=== PATIENT | female | born 1980 | race African-American/Black ===

== ENCOUNTER 2016-12-15 07:31 | Emergency (ER) | payer MEDICAID, SELFPAY ==
[2016-12-15] MEDS ORDERED: Sodium Chloride 0.9% 1,000 ML BAG ONE (07:47)
[2016-12-15] MEDS ORDERED: Ondansetron HCl/PF 4 MG/2 ML Vial ONE (07:53)
[2016-12-15] MEDS ORDERED: Ketorolac Tromethamine 30 MG/ML VIAL ONE (07:53)
[2016-12-15 08:15] LABS: Blood, Urine Trace (Negative); Clarity Clear (Clear); Glucose, Urine (Dipstick) 500 mg/dL (Negative); Leukocyte Negative (Negative); Nitrite Negative (Negative); Protein, Urine (Dipstick) Trace mg/dL (Neg-Trace); Specific Gravity, Urine 1.025 (1.005-1.030); pH, Urine 5.5 (5.0-9.0)
[2016-12-15 08:19] LABS: Bilirubin Small (Negative); Icto Negative (Negative)
[2016-12-15 08:21] LABS: Bacteria/HPF 1+ HPF (None Seen); Pregnancy Test - Urine (BHCG) NEGATIVE (NEGATIVE); RBC/HPF 0-3 HPF (0-3)
[2016-12-15 08:22] LABS: Pregu Control Bar Appear? YES (CONTROL BAR); Specific Gravity 1.025 (1.002-1.036)
--- NOTE | 2016-12-15 08:40 | CT ---
NONCONTRAST CT OF THE ABDOMEN AND PELVIS: IMPRESSION: Left-sided flank pain. FINDINGS: The lung bases are clear. There is a small gallstone within the gallbladder. The liver, spleen, pancreas, and adrenal glands are unremarkable. No right-sided renal or ureteral calculus is evident. There is left pelvic kidney. Small phlebolit hs are seen within the gonadal veins just to the left adnexa. There are small phleboliths within the lower pelvis. Unopacified large and small bowel are unremarkable-appearing. The bladder is decompressed. There is scattered degenerative and osteoarthritic change. IMPRESSION: 1. Left pelvic kidney. 2. No renal or ureteral calculus. No hydronephrosis demonstrated. 3. Cholelithiasis. POS: [facility]
[2016-12-15 08:52] LABS: #Eosinphils 0.1 thou/uL (0.0-0.7); #Monocytes 0.6 thou/uL (0.11-0.59); #Neutrophils 5.6 thou/uL (1.40-6.50); %Basophils 0.6 % (0.0-1.0); %Eosinophils 1.6 % (0.0-10.0); %Lymphocytes 24.1 % (21.0-51.0); %Monocytes 7.6 % (0.0-10.0); %Neutrophils 66.2 % (42.0-75.0); Hemoglobin 11.7 g/dL (12.0-16.0); Mean Corpuscular Hemoglobin 29.5 pg (27.0-31.0); Mean Corpuscular Volume 89.5 fl (81.0-99.0); Mean Platelet Volume 8.5 fL (7.4-10.4); Platelet Count 282 thou/uL (130-400); RBC Distribution Width 12.7 % (11.5-14.5); Red Blood Cell (RBC) Count 3.96 mill/uL (4.20-5.40); White Blood Cell (WBC) Count 8.5 thou/uL (4.8-10.8)
[2016-12-15 09:09] LABS: ALT (SGPT) 9 U/L (8-55); AST (SGOT) 8 U/L (5-34); Albumin 3.6 g/dL (3.5-5.0); Alkaline Phosphatase 73 U/L (40-150); Anion Gap 15 mmol/L (10-20); Bilirubin, Total 0.3 mg/dL (0.2-1.2); Calc. Creatinine Clearance 0 mL/min (70-130); Calcium 8.6 mg/dL (7.8-10.44); Carbon Dioxide 23 mmol/L (22-29); Chloride 102 mmol/L (98-107); Estimated GFR-MDRD Greater than 90; Glucose 320 mg/dL (70-105); Potassium 3.8 mmol/L (3.5-5.1); Protein, Total 6.6 g/dL (6.0-8.3); Sodium 136 mmol/L (136-145)
[2016-12-15 09:16] LABS: BUN (Urea Nitrogen) 7 mg/dL (7.0-18.7)
== END 2016-12-15 09:45 | disposition home or self-care (01) ==
LOC: MADERS 07:31
DX: R10.32 Left lower quadrant pain (principal); E10.65 Type 1 diabetes mellitus with hyperglycemia; I10 Essential (primary) hypertension; F17.210 Nicotine dependence, cigarettes, uncomplicated; Z79.4 Long term (current) use of insulin; Z79.899 Other long term (current) drug therapy
CPT/HCPCS: 74176; 80053; 81003; 81015; 81025; 85025; 87086; 96361; 96374; 96375; J1885; J2405; J7050

== ENCOUNTER 2017-04-20 10:10 | Emergency (ER) | payer MEDICAID ==
[2017-04-20] MEDS ORDERED: Ketorolac Tromethamine 60 MG/2 ML VIAL ONE (10:25)
== END 2017-04-20 10:58 | disposition home or self-care (01) ==
LOC: MADERS 10:10
DX: S29.011A Strain of muscle and tendon of front wall of thorax, initial encounter (principal); E11.9 Type 2 diabetes mellitus without complications; I10 Essential (primary) hypertension; F17.210 Nicotine dependence, cigarettes, uncomplicated; Z79.4 Long term (current) use of insulin; Z79.899 Other long term (current) drug therapy; X58.XXXA Exposure to other specified factors, initial encounter
CPT/HCPCS: 93005; 96372; J1885

== ENCOUNTER 2017-07-17 21:52 | Emergency (ER) | payer MEDICAID ==
[2017-07-17 23:16] LABS: Bilirubin Negative (Negative); Blood, Urine Negative (Negative); Clarity Slightly Cloudy (Clear); Glucose, Urine (Dipstick) 500 mg/dL (Negative); Leukocyte Negative (Negative); Nitrite Negative (Negative); Protein, Urine (Dipstick) Negative (Neg-Trace)
[2017-07-17 23:17] LABS: Prothrombin Time 12.9 SEC (12.0-14.7)
[2017-07-17 23:23] LABS: #Basophils 0.1 thou/uL (0.0-0.2); #Eosinphils 0.2 thou/uL (0.0-0.7); #Lymphocytes 3.2 thou/uL (1.20-3.40); #Monocytes 0.6 thou/uL (0.11-0.59); #Neutrophils 6.3 thou/uL (1.40-6.50); %Basophils 0.7 % (0.0-1.0); %Eosinophils 2.3 % (0.0-10.0); %Monocytes 5.9 % (0.0-10.0); %Neutrophils 60.2 % (42.0-75.0); Hemoglobin 11.7 g/dL (12.0-16.0); Mean Corpuscular Volume 90.6 fl (81.0-99.0); Mean Platelet Volume 7.5 fL (7.4-10.4); Platelet Count 327 thou/uL (130-400); RBC Distribution Width 13.4 % (11.5-14.5); Red Blood Cell (RBC) Count 4.02 mill/uL (4.20-5.40); White Blood Cell (WBC) Count 10.4 thou/uL (4.8-10.8)
[2017-07-17 23:23] LABS: Specific Gravity, Urine 1.032 (1.002-1.036)
[2017-07-17 23:28] LABS: ALT (SGPT) 12 U/L (8-55); AST (SGOT) 11 U/L (5-34); Albumin 3.6 g/dL (3.5-5.0); Alkaline Phosphatase 83 U/L (40-150); Anion Gap 15 mmol/L (10-20); BUN (Urea Nitrogen) 7 mg/dL (7.0-18.7); Bilirubin, Total Less than 0.3 mg/dL (0.2-1.2); Calc. Creatinine Clearance 0 mL/min (70-130); Calcium 9.1 mg/dL (7.8-10.44); Carbon Dioxide 24 mmol/L (22-29); Chloride 108 mmol/L (98-107); Estimated GFR-MDRD Greater than 90; Globulin 3.5 g/dL (2.4-3.5); Glucose 278 mg/dL (70-105); Magnesium 1.9 mg/dL (1.6-2.6); Protein, Total 7.1 g/dL (6.0-8.3); Sodium 143 mmol/L (136-145)
--- NOTE | 2017-07-17 23:33 | RAD ---
PA AND LATERAL CHEST: Indication: Chest pain. IMPRESSION: No acute cardiopulmonary abnormality. The examination is not appreciably changed from comparison date d 12-24-15. POS: [facility]
[2017-07-17 23:35] LABS: CKMB 0.6 ng/mL (0-6.6); Troponin I Less than 0.010 ng/mL (< 0.028)
== END 2017-07-17 23:52 | disposition home or self-care (01) ==
LOC: MADERS 21:52
DX: R07.89 Other chest pain (principal); E11.9 Type 2 diabetes mellitus without complications; I10 Essential (primary) hypertension; F17.210 Nicotine dependence, cigarettes, uncomplicated; Z79.899 Other long term (current) drug therapy; Z79.4 Long term (current) use of insulin
CPT/HCPCS: 36415; 71020; 80053; 81003; 82553; 83735; 84443; 84484; 85025; 85610; 93005

== ENCOUNTER 2017-09-02 18:55 | Emergency (ER) | payer MEDICAID, SELFPAY ==
[~2017-09-02 18:55] MED LIST: Sodium Chloride 0.9% 100 ML BAG ONE
[2017-09-02 19:30] LABS: #Basophils 0.1 thou/uL (0.0-0.2); #Eosinphils 0.1 thou/uL (0.0-0.7); #Lymphocytes 2.6 thou/uL (1.20-3.40); #Monocytes 0.6 thou/uL (0.11-0.59); #Neutrophils 4.2 thou/uL (1.40-6.50); %Basophils 1.5 % (0.0-1.0); %Eosinophils 1.5 % (0.0-10.0); %Lymphocytes 33.6 % (21.0-51.0); %Monocytes 7.9 % (0.0-10.0); %Neutrophils 55.5 % (42.0-75.0); Hemoglobin 13.3 g/dL (12.0-16.0); Mean Corpuscular HGB CONC 31.2 g/dL (32.0-36.0); Mean Corpuscular Hemoglobin 28.7 pg (27.0-31.0); Mean Corpuscular Volume 91.9 fl (81.0-99.0); Mean Platelet Volume 7.8 fL (7.4-10.4); Platelet Count 318 thou/uL (130-400); RBC Distribution Width 13.4 % (11.5-14.5); Red Blood Cell (RBC) Count 4.64 mill/uL (4.20-5.40); White Blood Cell (WBC) Count 7.6 thou/uL (4.8-10.8)
[2017-09-02] MEDS ORDERED: Metoclopramide HCl 10 MG/2 ML VIAL ONE ×2 (19:32→20:19)
[2017-09-02] MEDS ORDERED: diphenhydrAMINE 50 MG/ML VIAL ONE (19:32)
--- NOTE | 2017-09-02 19:35 | CT ---
CT HEAD WITHOUT CONTRAST 09/02/17 Multiple axial tomograms obtained through the head without IV enhancement. HISTORY: Headache. Ventricles have normal size and position. No evidence of intracranial hemorrhage or mass lesion. No i nfarct. The sinuses and mastoids are well aerated. IMPRESSION: No acute abnormality. POS: [facility]
[2017-09-02 19:58] LABS: PTT 27.7 SEC (22.9-36.1); Prothrombin Time 13.6 SEC (12.0-14.7)
[2017-09-02 20:09] LABS: ALT (SGPT) 11 U/L (8-55); AST (SGOT) 10 U/L (5-34); Albumin 3.9 g/dL (3.5-5.0); Alkaline Phosphatase 77 U/L (40-150); Anion Gap 16 mmol/L (10-20); BUN (Urea Nitrogen) 8 mg/dL (7.0-18.7); Bilirubin, Total 0.3 mg/dL (0.2-1.2); Calc. Creatinine Clearance 0 mL/min (70-130); Calcium 9.1 mg/dL (7.8-10.44); Carbon Dioxide 22 mmol/L (22-29); Chloride 106 mmol/L (98-107); Estimated GFR-MDRD Greater than 90; Globulin 3.9 g/dL (2.4-3.5); Glucose 146 mg/dL (70-105); Potassium 3.9 mmol/L (3.5-5.1); Protein, Total 7.8 g/dL (6.0-8.3); Sodium 140 mmol/L (136-145)
[2017-09-02 20:10] LABS: CKMB 0.2 ng/mL (0-6.6); Troponin I Less than 0.010 ng/mL (< 0.028)
== END 2017-09-02 22:42 | disposition home or self-care (01) ==
LOC: MADERS 18:55
DX: R51 Headache (principal); I10 Essential (primary) hypertension; E11.9 Type 2 diabetes mellitus without complications; F17.210 Nicotine dependence, cigarettes, uncomplicated
CPT/HCPCS: 36415; 70450; 80053; 82553; 84484; 85025; 85610; 85730; 93005; 96365; 96375; 96376; J1200; J2765; J7050

== ENCOUNTER 2017-10-18 14:28 | Outpatient (CLI) | payer OTHER ==
[2017-10-18 15:06] LABS: #Eosinphils 0.2 thou/uL (0.0-0.7); #Monocytes 0.5 thou/uL (0.11-0.59); %Basophils 0.5 % (0.0-1.0); %Eosinophils 1.7 % (0.0-10.0); %Lymphocytes 30.6 % (21.0-51.0); %Monocytes 5.1 % (0.0-10.0); %Neutrophils 62.2 % (42.0-75.0); Hemoglobin 12.6 g/dL (12.0-16.0); Mean Corpuscular HGB CONC 31.6 g/dL (32.0-36.0); Mean Corpuscular Volume 91.8 fl (81.0-99.0); Mean Platelet Volume 7.6 fL (7.4-10.4); Platelet Count 345 thou/uL (130-400); RBC Distribution Width 12.8 % (11.5-14.5); Red Blood Cell (RBC) Count 4.33 mill/uL (4.20-5.40); White Blood Cell (WBC) Count 9.7 thou/uL (4.8-10.8)
[2017-10-18 15:27] LABS: ALT (SGPT) 16 U/L (8-55); AST (SGOT) 11 U/L (5-34); Albumin 3.9 g/dL (3.5-5.0); Alkaline Phosphatase 67 U/L (40-150); Anion Gap 13 mmol/L (10-20); BUN (Urea Nitrogen) 9 mg/dL (7.0-18.7); Bilirubin, Total 0.2 mg/dL (0.2-1.2); Calc. Creatinine Clearance 0 mL/min (70-130); Calcium 9.2 mg/dL (7.8-10.44); Carbon Dioxide 25 mmol/L (22-29); Chloride 101 mmol/L (98-107); Estimated GFR-MDRD 87; Globulin 3.4 g/dL (2.4-3.5); Glucose 323 mg/dL (70-105); Potassium 4.4 mmol/L (3.5-5.1); Protein, Total 7.3 g/dL (6.0-8.3); Sodium 135 mmol/L (136-145)
[2017-10-18 15:42] LABS: Thyroid Stimulating Hormone 0.4503 uIU/mL (0.35-4.94)
[2017-10-18 22:03] LABS: Free T4 (Free Thyroxine) 1.02 ng/dL (0.70-1.48)
== END 2017-10-18 14:29 | disposition home or self-care (01) ==
LOC: MADLABBHPM 14:28 → EDSTATUS 14:31
PROVIDERS: ATTEND Family Medicine
DX: R07.9 Chest pain, unspecified (principal); R06.02 Shortness of breath; R53.83 Other fatigue
CPT/HCPCS: 36415; 80053; 82607; 84439; 84443; 85025; 93005; 93010

== ENCOUNTER 2018-03-10 14:42 | Outpatient (CLI) | payer OTHER ==
--- NOTE | 2018-03-10 16:04 | RAD ---
CHEST TWO VIEW: 03/10/18 HISTORY: Recurrent cough. COMPARISON: Chest radiograph 07/17/17. The lungs are clear. No pneumothorax or effusion. The cardiac silhouette and mediastinal contours are within normal limits. IMPRESSION: No acute intrathoracic abnormality. POS: [facility]
== END 2018-03-10 14:43 | disposition home or self-care (01) ==
LOC: MADRAD 14:42
PROVIDERS: ATTEND Family Medicine
DX: R05 Cough (principal)
CPT/HCPCS: 71046

== ENCOUNTER 2018-04-03 20:07 | Emergency (ER) | payer OTHER ==
[~2018-04-03 20:07] MED LIST changes: +Iopamidol 370 76% 100 ML VIAL ONE; +Sodium Chloride 0.9% 1,000 ML BAG ONE; -Sodium Chloride 0.9% 100 ML BAG ONE
[2018-04-03] MEDS ORDERED: Morphine 10 MG/ML VIAL ONE (20:34)
[2018-04-03] MEDS ORDERED: Ondansetron HCl/PF 4 MG/2 ML Vial ONE (20:35)
[2018-04-03] MEDS ORDERED: diphenhydrAMINE 50 MG/ML VIAL ONE (20:35)
[2018-04-03 20:46] LABS: #Eosinphils 0.1 thou/uL (0.0-0.7); #Lymphocytes 3.6 thou/uL (1.20-3.40); #Monocytes 0.6 thou/uL (0.11-0.59); #Neutrophils 6.6 thou/uL (1.40-6.50); %Basophils 0.4 % (0.0-1.0); %Eosinophils 1.1 % (0.0-10.0); %Monocytes 5.1 % (0.0-10.0); %Neutrophils 60.3 % (42.0-75.0); Hemoglobin 12.6 g/dL (12.0-16.0); Mean Corpuscular HGB CONC 31.8 g/dL (32.0-36.0); Mean Corpuscular Hemoglobin 27.6 pg (27.0-31.0); Mean Corpuscular Volume 86.9 fL (78.0-98.0); Mean Platelet Volume 8.7 fL (7.4-10.4); Platelet Count 251 thou/uL (130-400); RBC Distribution Width 12.8 % (11.5-14.5); Red Blood Cell (RBC) Count 4.58 mill/uL (4.20-5.40); White Blood Cell (WBC) Count 10.9 thou/uL (4.8-10.8)
[2018-04-03 20:48] LABS: PTT 27.9 SEC (22.9-36.1); Prothrombin Time 12.9 SEC (12.0-14.7)
[2018-04-03 20:58] LABS: ALT (SGPT) 13 U/L (8-55); AST (SGOT) 11 U/L (5-34); Albumin 3.9 g/dL (3.5-5.0); Alkaline Phosphatase 90 U/L (40-150); Anion Gap 16 mmol/L (10-20); BUN (Urea Nitrogen) 10 mg/dL (7.0-18.7); Bilirubin, Total 0.3 mg/dL (0.2-1.2); Calc. Creatinine Clearance 0 mL/min (70-130); Calcium 9.7 mg/dL (7.8-10.44); Carbon Dioxide 25 mmol/L (22-29); Chloride 100 mmol/L (98-107); Estimated GFR-MDRD 69; Globulin 3.7 g/dL (2.4-3.5); Glucose 368 mg/dL (70-105); Potassium 4.2 mmol/L (3.5-5.1); Protein, Total 7.6 g/dL (6.0-8.3); Sodium 137 mmol/L (136-145)
[2018-04-03] MEDS ORDERED: Morphine 4 MG/ML VIAL ONE (21:41)
--- NOTE | 2018-04-03 21:51 | RAD ---
CHEST TWO VIEWS: HISTORY: Pain radiating up the neck and posterior right aspect of the head. COMPARISON: 03/10/2018 FINDINGS: A right-sided Mediport catheter with the distal tip presumed to be in the superior vena cava. There is no pneumothorax. The lungs and pleural spaces are clear. Normal cardiac silhouette. IMPRESSION: Right-sided Mediport catheter, as above. No pneumothorax. POS: [facility]
--- NOTE | 2018-04-03 21:57 | RAD ---
SOFT TISSUE NECK RADIOGRAPH: HISTORY: Breast cancer. Puncture luther above the right clavicle, causing lateral neck pain. Subclavian port p laced today for chemo. FINDINGS: Two views of the soft tissue neck do not demonstrate any radiopaque foreign body. There appears to b e surgical clips in the left neck. The epiglottis has a normal caliber. There is no prevertebral so ft tissue swelling. Unremarkable catheter in the lower right neck. IMPRESSION: 1. Patent aerodigestive tract. 2. Surgical clip in the left neck. 3. Normal caliber epiglottis. 4. Limited evaluation of the Mediport catheter, which appears to be grossly unremarkable along its p osition in the lower right neck. POS: [facility]
--- NOTE | 2018-04-03 22:39 | CT ---
CT NECK SOFT TISSUE: HISTORY: Pain. Recent port catheter placement. COMPARISON: Chest radiograph from the same date. There is small volume glass on the right sternocleidomastoid mu scle. There is expected gas from recent port placement. A right IJ port catheter has been placed, w ith the tip in good position, at the mid to inferior SVC. No significant hematoma. No pneumothorax. The lung apices are clear. There is mild degenerative disk space disease at C4-C5. The thyroid is unremarkable. Evaluation of the known breast mass is limited. No suspicious osteolytic or osteoblastic lesion of the cervical spine. IMPRESSION: Expected postoperative change from recent port placement. No complications. POS: [facility]
[2018-04-03] MEDS ORDERED: Ibuprofen 800 MG TAB ONE (22:42)
[2018-04-03] MEDS ORDERED: HYDROcodone/Acetaminophen 10/325 mg Tablet ONE (22:42)
[2018-04-03] MEDS ORDERED: Cyclobenzaprine 10 MG TAB ONE (22:42)
== END 2018-04-03 22:50 | disposition home or self-care (01) ==
LOC: MADERS 20:07
DX: G89.18 Other acute postprocedural pain (principal); E11.9 Type 2 diabetes mellitus without complications; I10 Essential (primary) hypertension; F17.210 Nicotine dependence, cigarettes, uncomplicated; Z79.4 Long term (current) use of insulin; Z79.899 Other long term (current) drug therapy
CPT/HCPCS: 70360; 70491; 71046; 80053; 85025; 85610; 85730; 96361; 96374; 96375; 96376; J1200; J2270; J2405; J7050

== ENCOUNTER 2018-04-08 14:04 | Emergency (ER) | payer OTHER ==
[~2018-04-08 14:04] MED LIST changes: -Iopamidol 370 76% 100 ML VIAL ONE; +Iopamidol 370 76% 125 ML VIAL FS ONE; -Sodium Chloride 0.9% 1,000 ML BAG ONE; +Sodium Chloride 0.9% 100 ML BAG ONE
--- NOTE | 2018-04-08 15:29 | RAD ---
TWO VIEW CHEST: INDICATION: Dyspnea. COMPARISON: 04/03/18. FINDINGS: Lungs appear clear. No infiltrate identified. Heart and mediastinum unremarkable. A MediPort olga ter is unchanged in position. IMPRESSION: No evidence of acute process. POS: [facility]
[2018-04-08 15:33] LABS: ALT (SGPT) 12 U/L (8-55); AST (SGOT) 11 U/L (5-34); Albumin 4.1 g/dL (3.5-5.0); Alkaline Phosphatase 82 U/L (40-150); Anion Gap 17 mmol/L (10-20); BUN (Urea Nitrogen) 8 mg/dL (7.0-18.7); Bilirubin, Total 0.5 mg/dL (0.2-1.2); Calc. Creatinine Clearance 0 mL/min (70-130); Calcium 9.8 mg/dL (7.8-10.44); Carbon Dioxide 22 mmol/L (22-29); Chloride 102 mmol/L (98-107); Estimated GFR-MDRD Greater than 90; Globulin 3.8 g/dL (2.4-3.5); Glucose 193 mg/dL (70-105); Potassium 3.8 mmol/L (3.5-5.1); Protein, Total 7.9 g/dL (6.0-8.3); Sodium 137 mmol/L (136-145)
[2018-04-08 15:36] LABS: CKMB 0.2 ng/mL (0-6.6); Troponin I Less than 0.010 ng/mL (< 0.028)
[2018-04-08 15:42] LABS: #Basophils 0.1 thou/uL (0.0-0.2); #Eosinphils 0.2 thou/uL (0.0-0.7); #Monocytes 0.5 thou/uL (0.11-0.59); #Neutrophils 7.5 thou/uL (1.40-6.50); %Basophils 0.6 % (0.0-1.0); %Eosinophils 1.4 % (0.0-10.0); %Lymphocytes 26.7 % (21.0-51.0); %Monocytes 4.4 % (0.0-10.0); %Neutrophils 66.9 % (42.0-75.0); Lymphocytes 27 % (21-51); MDiff Complete? YES; Mean Corpuscular HGB CONC 32.3 g/dL (32.0-36.0); Mean Corpuscular Hemoglobin 27.6 pg (27.0-31.0); Mean Corpuscular Volume 85.5 fL (78.0-98.0); Mean Platelet Volume 8.5 fL (7.4-10.4); Monocytes 6 % (0-10); Neutrophil 67 % (42-75); PLT Morphology Comment Appears Adequate; Platelet Count 274 thou/uL (130-400); RBC Distribution Width 12.8 % (11.5-14.5); White Blood Cell (WBC) Count 11.3 thou/uL (4.8-10.8)
--- NOTE | 2018-04-08 16:46 | CT ---
CT ANGIOGRAM THORAX WITH IV CONTRAST AND 3D RECONSTRUCTIONS: 04/08/18 HISTORY: Dyspnea. COMPARISON: CT thorax on 01/06/16. FINDINGS: No filling defects are seen in the pulmonary arteries to suggest a pulmonary embolus. The thoracic aorta is normal in caliber without evidence of an aortic dissection. Calcified granulomas again seen at the posterior left lung base. Scattered areas of atelectasis are p resent. There is no noncalcified pulmonary nodule, mass, or pleural effusion seen. A left internal jugular vein Mediport catheter is now noted in place with the tip terminating at the distal SVC. Calcified subcarinal lymph node is seen. Stable but mildly prominent left axillary lymph nodes are identified. The ill-defined low density area seen posterior and inferior to the pancreas and adjacent to the left adrenal gland is again seen and unchanged from the prior exam. This area was also seen on a prior st udy in 2012 but has improved from the prior study in 2012. There is a tiny less than 4 mm incompletely imaged hypodense nodule in the left lobe of the thyroid g land which is difficult to further characterize due to very small size. There is incomplete imaging o f a nodular density within the left breast. IMPRESSION: 1. No CT evidence of a pulmonary embolus. 2. Incomplete imaging of a nodular density in the left breast. However, mammograms obtained at [facility] on 03/01/18 demonstrated a breast mass which was subsequently biopsied. 3. No noncalcified pulmonary nodules are seen. There are mildly prominent left axillary lymph no hema, which were also present on prior exam. 4. Right internal jugular vein Mediport catheter now in place. 5. Stable low density structure posterior and inferior to the pancreas and adjacent left adrenal gland seen on prior studies in 2015 and 2012 of uncertain etiology. POS: [facility]
== END 2018-04-08 17:20 | disposition home or self-care (01) ==
LOC: MADERS 14:04
DX: G89.18 Other acute postprocedural pain (principal); R06.02 Shortness of breath; R42 Dizziness and giddiness; I10 Essential (primary) hypertension; E11.9 Type 2 diabetes mellitus without complications; F17.210 Nicotine dependence, cigarettes, uncomplicated; Z79.891 Long term (current) use of opiate analgesic; Z79.4 Long term (current) use of insulin; Z79.899 Other long term (current) drug therapy
CPT/HCPCS: 71046; 71275; 80053; 82553; 84484; 85025; 85379; 93005; J7050

== ENCOUNTER 2018-04-18 17:41 | Emergency (ER) | payer SELFPAY ==
[~2018-04-18 17:41] MED LIST changes: -Iopamidol 370 76% 125 ML VIAL FS ONE; +Sodium Chloride 0.9% 1,000 ML BAG ONE; -Sodium Chloride 0.9% 100 ML BAG ONE
[2018-04-18] MEDS ORDERED: Pantoprazole 40 MG VIAL ONE (18:13)
[2018-04-18] MEDS ORDERED: Lorazepam 2 MG/ML VIAL ONE (18:13)
[2018-04-18] MEDS ORDERED: Promethazine HCl 25 MG/ML VIAL ONE (18:13)
[2018-04-18 18:32] LABS: ALT (SGPT) 12 U/L (8-55); AST (SGOT) 9 U/L (5-34); Albumin 3.9 g/dL (3.5-5.0); Alkaline Phosphatase 126 U/L (40-150); Anion Gap 16 mmol/L (10-20); BUN (Urea Nitrogen) 7 mg/dL (7.0-18.7); Bilirubin, Total 0.7 mg/dL (0.2-1.2); Calc. Creatinine Clearance 0 mL/min (70-130); Calcium 8.9 mg/dL (7.8-10.44); Carbon Dioxide 26 mmol/L (22-29); Chloride 101 mmol/L (98-107); Estimated GFR-MDRD Greater than 90; Globulin 3.5 g/dL (2.4-3.5); Glucose 288 mg/dL (70-105); Lipase 4 U/L (8-78); Potassium 3.6 mmol/L (3.5-5.1); Protein, Total 7.4 g/dL (6.0-8.3); Sodium 139 mmol/L (136-145)
[2018-04-18 18:35] LABS: Mean Corpuscular HGB CONC 33.1 g/dL (32.0-36.0); Mean Corpuscular Hemoglobin 28.6 pg (27.0-31.0); Mean Corpuscular Volume 86.4 fL (78.0-98.0); Mean Platelet Volume 8.5 fL (7.4-10.4); Platelet Count 227 thou/uL (130-400); RBC Distribution Width 12.5 % (11.5-14.5); White Blood Cell (WBC) Count 3.4 thou/uL (4.8-10.8)
[2018-04-18 18:36] LABS: Band 1 % (5-11); Lymphocytes 22 % (21-51); MDiff Complete? YES; Metamyelocyte 1 % (0-0); Monocytes 3 % (0-10); Neutrophil 51 % (42-75); PLT Morphology Comment Appears Adequate; RBC Morphology Normal; Reactive Lymphocytes 22 % (0-10)
[2018-04-18] MEDS ORDERED: Lorazepam 1 MG TAB ONE (21:20)
[2018-04-18] MEDS ORDERED: Promethazine 25 MG TAB ONE (21:20)
== END 2018-04-18 20:55 | disposition home or self-care (01) ==
LOC: MADERS 17:41
DX: R11.2 Nausea with vomiting, unspecified (principal); R10.9 Unspecified abdominal pain; E11.9 Type 2 diabetes mellitus without complications; I10 Essential (primary) hypertension; F17.210 Nicotine dependence, cigarettes, uncomplicated; Z79.899 Other long term (current) drug therapy; Z79.4 Long term (current) use of insulin; Z79.891 Long term (current) use of opiate analgesic
CPT/HCPCS: 80053; 83605; 83690; 85025; 96361; 96374; 96375; C9113; J2060; J2550; J7050

== ENCOUNTER 2018-04-30 09:24 | Emergency (ER) | payer OTHER ==
[2018-04-30] MEDS ORDERED: Pantoprazole 40 MG VIAL ONE (09:32)
[2018-04-30] MEDS ORDERED: Dexamethasone 10 MG/ML VIAL ONE (09:32)
[2018-04-30] MEDS ORDERED: Promethazine HCl 25 MG/ML VIAL ONE (09:32)
[2018-04-30] MEDS ORDERED: Lorazepam 2 MG/ML VIAL ONE (09:32)
--- NOTE | 2018-04-30 10:27 | RAD ---
1 VIEW CHEST: Date: 04/30/18 COMPARISON: 04/03/18. HISTORY: Pain. FINDINGS: Stable right-sided MediPort catheter. Normal cardiac silhouette. Lungs and pleural spaces are clear. No pneumothorax or osseous abnormalities. IMPRESSION: No acute cardiopulmonary process. POS: [facility]
[2018-04-30 10:35] LABS: ALT (SGPT) 15 U/L (8-55); AST (SGOT) 9 U/L (5-34); Albumin 3.6 g/dL (3.5-5.0); Alkaline Phosphatase 127 U/L (40-150); Anion Gap 17 mmol/L (10-20); BUN (Urea Nitrogen) 8 mg/dL (7.0-18.7); Bilirubin, Total 0.5 mg/dL (0.2-1.2); Calc. Creatinine Clearance 0 mL/min (70-130); Calcium 8.5 mg/dL (7.8-10.44); Carbon Dioxide 24 mmol/L (22-29); Chloride 102 mmol/L (98-107); Estimated GFR-MDRD Greater than 90; Globulin 2.9 g/dL (2.4-3.5); Glucose 355 mg/dL (70-105); Lipase 4 U/L (8-78); Magnesium 1.5 mg/dL (1.6-2.6); Protein, Total 6.5 g/dL (6.0-8.3); Sodium 139 mmol/L (136-145)
[2018-04-30 10:37] LABS: CKMB 0.2 ng/mL (0-6.6); Hemoglobin 11.7 g/dL (12.0-16.0); Mean Corpuscular HGB CONC 32.6 g/dL (32.0-36.0); Mean Corpuscular Hemoglobin 29.2 pg (27.0-31.0); Mean Corpuscular Volume 89.7 fL (78.0-98.0); Mean Platelet Volume 7.8 fL (7.4-10.4); Platelet Count 349 thou/uL (130-400); RBC Distribution Width 13.9 % (11.5-14.5); Red Blood Cell (RBC) Count 4.01 mill/uL (4.20-5.40); Troponin I 0.011 ng/mL (< 0.028); White Blood Cell (WBC) Count 33.8 thou/uL (4.8-10.8)
[2018-04-30 10:38] LABS: Band 1 % (5-11); Lymphocytes 1 % (21-51); MDiff Complete? YES; Monocytes 1 % (0-10); Neutrophil 96 % (42-75); PLT Morphology Comment Appears Adequate; Reactive Lymphocytes 1 % (0-10)
[2018-04-30] MEDS ORDERED: Magnesium Sulfate 2 GM/NS 0.9% 50 ML BAG ONE (10:47)
== END 2018-04-30 11:35 | disposition short-term general hospital (02) ==
LOC: MADERS 09:24
DX: E83.42 Hypomagnesemia (principal); D72.829 Elevated white blood cell count, unspecified; E11.9 Type 2 diabetes mellitus without complications; C79.81 Secondary malignant neoplasm of breast; I10 Essential (primary) hypertension; F17.210 Nicotine dependence, cigarettes, uncomplicated
CPT/HCPCS: 36415; 71045; 80053; 82553; 83690; 83735; 83880; 84484; 85025; 93005; 96361; 96365; 96375; C9113; J1100; J2060; J2550; J3475; J7050

== ENCOUNTER → 2018-05-05 | Emergency (ER) | payer OTHER ==
[~2018-05-05] MED LIST changes: +Azithromycin 250 MG TAB ONE; +Iopamidol 370 76% 100 ML VIAL ONE; +Metoclopramide HCl 10 MG/2 ML VIAL ONE; +Ondansetron HCl/PF 4 MG/2 ML Vial ONE; -Sodium Chloride 0.9% 1,000 ML BAG ONE; +Sodium Chloride 0.9% 100 ML BAG ONE
--- NOTE | 2018-05-05 22:43 | RAD ---
PORTABLE CHEST: 05/05/18 HISTORY: Dyspnea. COMPARISON: A 04/29/18 study. Heart size is within normal limits. A right sided Mediport catheter is unchanged in position. The mauricio gs are clear of infiltrative process. IMPRESSION: No active intrathoracic disease. POS: [facility]
[2018-05-05 22:53] LABS: #Basophils 0.1 thou/uL (0.0-0.2); #Lymphocytes 1.6 thou/uL (1.20-3.40); #Monocytes 0.4 thou/uL (0.11-0.59); #Neutrophils 1.4 thou/uL (1.40-6.50); %Basophils 1.6 % (0.0-1.0); %Eosinophils 0.5 % (0.0-10.0); %Lymphocytes 45.6 % (21.0-51.0); %Neutrophils 40.3 % (42.0-75.0); Hemoglobin 11.1 g/dL (12.0-16.0); Mean Corpuscular HGB CONC 33.3 g/dL (32.0-36.0); Mean Corpuscular Hemoglobin 29.3 pg (27.0-31.0); Mean Platelet Volume 7.8 fL (7.4-10.4); Platelet Count 230 thou/uL (130-400); RBC Distribution Width 13.2 % (11.5-14.5); Red Blood Cell (RBC) Count 3.79 mill/uL (4.20-5.40); White Blood Cell (WBC) Count 3.6 thou/uL (4.8-10.8)
[2018-05-05 23:53] LABS: ALT (SGPT) 13 U/L (8-55); Albumin 3.5 g/dL (3.5-5.0); Alkaline Phosphatase 82 U/L (40-150); Anion Gap 17 mmol/L (10-20); BUN (Urea Nitrogen) 5 mg/dL (7.0-18.7); Bilirubin, Total 0.2 mg/dL (0.2-1.2); Calc. Creatinine Clearance 0 mL/min (70-130); Calcium 9.1 mg/dL (7.8-10.44); Carbon Dioxide 23 mmol/L (22-29); Chloride 102 mmol/L (98-107); Estimated GFR-MDRD Greater than 90; Globulin 3.2 g/dL (2.4-3.5); Glucose 303 mg/dL (70-105); Potassium 4.1 mmol/L (3.5-5.1); Protein, Total 6.7 g/dL (6.0-8.3); Sodium 138 mmol/L (136-145)
[2018-05-05 23:56] LABS: AST (SGOT) 16 U/L (5-34)
--- NOTE | 2018-05-06 11:13 | CT ---
PRELIMINARY REPORT/[facility]/EMERGENCY AFTER HOURS PROCEDURE: EXAM: CT Chest Without And With Intravenous Contrast CLINICAL HISTORY: 38 years old, female; Signs and symptoms; Dyspnea; Patient HX: Cancer pt, chemotherapy is ongoing TECHNIQUE: Axial computed tomography images of the chest without and with intravenous contrast. Coronal and sagi ttal reformatted images were created and reviewed. CONTRAST: 90 mL of [id number] administered intravenously. COMPARISON: No relevant prior studies available. FINDINGS: Lungs: No acute findings. No mass. No consolidation. Few small left lower lobe calcified granulomas. Pleural space: No acute findings. No pneumothorax. No effusion. Heart: No acute findings. No cardiomegaly. No pericardial effusion. Bones/joints: No acute fracture. Soft tissues: Left breast mass measuring up to about 4.5cm. Vasculature: No acute findings. No thoracic aortic aneurysm. Lymph nodes: No lymphadenopathy. Upper abdomen: Few small gallstones. Tubes, lines and devices: Right chest port tip in the proximal SVC. IMPRESSION: Left breast mass. No acute pulmonary findings. Thank you for allowing us to participate in the care of your patient. Dictated and Authenticated by: Brent Mcdaniel MD 05/06/2018 1:51 AM Central Time ([place] & [place]) FINAL REPORT EMERGENT AFTER HOURS NONCONTRAST CT THORAX: DTAE: 05/06/18. HISTORY: Dyspnea. COMPARISON: 05/06/18. IMPRESSION: 1. Left breast mass which was noted on prior exam. 2. Right internal jugular vein MediPort catheter partially imaged with tip in the proximal superior vena cava. 3. Mild vascular calcifications in the abdominal aorta. 3. The lungs are clear without evidence of a pulmonary nodule, mass, or pleural effusion. A calcifi ed granuloma is present at the left lung base. 4. Limited evaluation of vasculature and mediastinal structures, but no definite enlarged lymph node s are seen. 5. Cholelithiasis. 6. Nonvisualization of the left kidney. 7. Linear low-density structure closely adjacent to the left adrenal gland which is stable from prio r contrasted study on 05/06/18, and this area was also imaged on a prior exam in 2012 and may be posts urgical in origin. 8. No lytic or sclerotic osseous lesions are seen. 9. Findings are in agreement with the preliminary report by [facility]. POS: [facility]
== END ==
LOC: MADERS 21:23
DX: R06.02 Shortness of breath (principal); E11.9 Type 2 diabetes mellitus without complications; F32.9 Major depressive disorder, single episode, unspecified; Z79.4 Long term (current) use of insulin; Z79.899 Other long term (current) drug therapy
CPT/HCPCS: 71045; 71270; 80053; 83880; 84484; 85025; 85379; 93005; 96374; J1642; J2405; J2765; J7050

== ENCOUNTER 2018-05-14 13:04 | Emergency (ER) | payer OTHER ==
[~2018-05-14 13:04] MED LIST changes: -Azithromycin 250 MG TAB ONE; -Iopamidol 370 76% 100 ML VIAL ONE; -Metoclopramide HCl 10 MG/2 ML VIAL ONE; -Ondansetron HCl/PF 4 MG/2 ML Vial ONE; +Sodium Chloride 0.9% 1,000 ML BAG ONE; -Sodium Chloride 0.9% 100 ML BAG ONE
[2018-05-14] MEDS ORDERED: Lorazepam 2 MG/ML VIAL ONE (13:23)
[2018-05-14] MEDS ORDERED: Dexamethasone 10 MG/ML VIAL ONE (13:24)
[2018-05-14] MEDS ORDERED: Prochlorperazine 10 MG/2 ML VIAL ONE (13:24)
[2018-05-14 14:26] LABS: ALT (SGPT) 15 U/L (8-55); AST (SGOT) 9 U/L (5-34); Albumin 3.8 g/dL (3.5-5.0); Alkaline Phosphatase 135 U/L (40-150); Anion Gap 17 mmol/L (10-20); BUN (Urea Nitrogen) 8 mg/dL (7.0-18.7); Bilirubin, Total 0.6 mg/dL (0.2-1.2); Calc. Creatinine Clearance 0 mL/min (70-130); Calcium 8.7 mg/dL (7.8-10.44); Carbon Dioxide 22 mmol/L (22-29); Chloride 100 mmol/L (98-107); Estimated GFR-MDRD Greater than 90; Globulin 3.1 g/dL (2.4-3.5); Glucose 369 mg/dL (70-105); Lipase 4 U/L (8-78); Magnesium 1.6 mg/dL (1.6-2.6); Potassium 3.4 mmol/L (3.5-5.1); Protein, Total 6.9 g/dL (6.0-8.3); Sodium 136 mmol/L (136-145)
[2018-05-14 14:29] LABS: Band 2 % (5-11); Hemoglobin 11.2 g/dL (12.0-16.0); Lymphocytes 3 % (21-51); MDiff Complete? YES; Mean Corpuscular HGB CONC 32.8 g/dL (32.0-36.0); Mean Corpuscular Volume 88.3 fL (78.0-98.0); Mean Platelet Volume 6.6 fL (7.4-10.4); Monocytes 1 % (0-10); Myelocyte 1 % (0-0); Neutrophil 93 % (42-75); PLT Morphology Comment Appears Adequate; Platelet Count 389 thou/uL (130-400); RBC Distribution Width 15.2 % (11.5-14.5); Red Blood Cell (RBC) Count 3.87 mill/uL (4.20-5.40)
[2018-05-14] MEDS ORDERED: Magnesium Sulfate 2 GM/NS 0.9% 50 ML BAG ONE (14:49)
== END 2018-05-14 16:39 | disposition home or self-care (01) ==
LOC: MADERS 13:04
DX: R11.2 Nausea with vomiting, unspecified (principal); E11.9 Type 2 diabetes mellitus without complications; F32.9 Major depressive disorder, single episode, unspecified; Z79.899 Other long term (current) drug therapy; Z79.4 Long term (current) use of insulin
CPT/HCPCS: 36415; 80053; 83690; 83735; 85025; 96361; 96365; 96375; J0780; J1100; J2060; J3475; J7050

== ENCOUNTER 2018-05-17 18:13 | Emergency (ER) | payer OTHER, SELFPAY ==
[~2018-05-17 18:13] MED LIST changes: +Iopamidol 370 76% 125 ML VIAL FS ONE; +Sodium Chloride 0.9% 100 ML BAG ONE
[2018-05-17] MEDS ORDERED: Ondansetron HCl/PF 4 MG/2 ML Vial ONE (18:41)
[2018-05-17] MEDS ORDERED: Lorazepam 2 MG/ML VIAL ONE (18:41)
[2018-05-17] MEDS ORDERED: Aspirin 325 MG TAB ONE (18:41)
[2018-05-17] MEDS ORDERED: Morphine 4 MG/ML VIAL ONE (18:41)
[2018-05-17] MEDS ORDERED: Promethazine HCl 25 MG/ML VIAL ONE (18:48)
[2018-05-17 19:16] LABS: Anisocytosis SLIGHT = 6-15 cells (100X) (0-5/hpf); Band 40 % (5-11); Eosinophils 2 % (0-10); Hemoglobin 10.2 g/dL (12.0-16.0); Hypochromia SLIGHT = 6-15 cells (100X) (0-5/hpf); Lymphocytes 3 % (21-51); MDiff Complete? YES; Mean Corpuscular Hemoglobin 29.3 pg (27.0-31.0); Monocytes 8 % (0-10); Neutrophil 47 % (42-75); PLT Morphology Comment Appears Adequate; Platelet Count 314 thou/uL (130-400); Red Blood Cell (RBC) Count 3.46 mill/uL (4.20-5.40); White Blood Cell (WBC) Count 2.9 thou/uL (4.8-10.8)
[2018-05-17 19:17] LABS: Anion Gap 17 mmol/L (10-20); BUN (Urea Nitrogen) 5 mg/dL (7.0-18.7); CK (CPK) 32 U/L (29-168); Calc. Creatinine Clearance 0 mL/min (70-130); Calcium 9.2 mg/dL (7.8-10.44); Carbon Dioxide 23 mmol/L (22-29); Chloride 103 mmol/L (98-107); Estimated GFR-MDRD Greater than 90; Glucose 330 mg/dL (70-105); Potassium 3.7 mmol/L (3.5-5.1); Sodium 139 mmol/L (136-145)
[2018-05-17 19:20] LABS: CKMB 0.3 ng/mL (0-6.6); Troponin I 0.013 ng/mL (< 0.028)
[2018-05-17] MEDS ORDERED: Enoxaparin Sodium 60 MG/0.6 ML SYRINGE ONE (19:41)
[2018-05-17] MEDS ORDERED: Enoxaparin Sodium 30 MG/0.3 ML SYRINGE ONE (19:41)
[2018-05-17] MEDS ORDERED: diphenhydrAMINE 50 MG/ML VIAL ONE ×2 (19:49→20:09)
[2018-05-17] MEDS ORDERED: Famotidine 20 MG TAB ONE (20:04)
[2018-05-17] MEDS ORDERED: methylPREDNISolone Sod Succ/PF 125 MG/2 ML VIAL ONE (20:04)
--- NOTE | 2018-05-17 20:04 | RAD ---
FRONTAL VIEW CHEST: 05/17/18 COMPARISON: 05/05/18 INDICATION: Chest pain. FINDINGS: Right sided chest port is again seen. There are hazy densities in the lower chest bilaterally indicat ing pleural fluid. The cardiac silhouette is prominent. Chest is otherwise similar. IMPRESSION: Bilateral hazy densities at the lower chest indicating pleural fluid. Recommend continued followup. POS: [facility]
[2018-05-17] MEDS ORDERED: Famotidine In NaCl 20 mg/50 ml Premix Bag ONE (20:11)
[2018-05-17] MEDS ORDERED: Insulin Regular 300 UNITS/3 ML VIAL ONE (21:32)
--- NOTE | 2018-05-17 21:46 | CT ---
CTA CHEST WITH CONTRAST AND 3D VOLUME RENDERIN05/17/18 Reference made to 05/06/18 CT exam of chest. CLINICAL HISTORY: Chest pain. Dyspnea. Elevated D-dimer. FINDINGS: There is no large, central filling defect of the pulmonary arteries. The segmental and subsegmental p ulmonary arterial branches are limited in assessment on the basis of this exam. There is redemonstrat ion of a spiculated, heterogeneously dense left breast mass. The thoracic aorta is normal in caliber . Cholelithiasis is incidentally visualized. Atelectasis is seen within each lung. Right chest port i s present. The osseous structures are grossly stable. IMPRESSION: 1. No large, central pulmonary embolus. 2. Redemonstration of left breast mass. POS: [facility]
== END 2018-05-17 21:55 | disposition short-term general hospital (02) ==
LOC: MADERS 18:13
DX: R07.2 Precordial pain (principal); E11.9 Type 2 diabetes mellitus without complications; F32.9 Major depressive disorder, single episode, unspecified; Z85.3 Personal history of malignant neoplasm of breast; Z79.4 Long term (current) use of insulin; Z79.84 Long term (current) use of oral hypoglycemic drugs; Z79.899 Other long term (current) drug therapy
CPT/HCPCS: 71045; 71275; 80048; 82550; 82553; 83880; 84484; 85025; 85379; 93005; 94760; 96372; 96374; 96375; J1200; J1650; J1815; J2060; J2270; J2405; J2550; J2930; J7050

== ENCOUNTER 2018-05-30 11:21 | Emergency (ER) | payer OTHER ==
[~2018-05-30 11:21] MED LIST changes: -Iopamidol 370 76% 125 ML VIAL FS ONE; -Sodium Chloride 0.9% 100 ML BAG ONE
[2018-05-30] MEDS ORDERED: Phentolamine Mesylate 5 MG VIAL ONE (11:40)
[2018-05-30] MEDS ORDERED: Metoclopramide HCl 10 MG/2 ML VIAL ONE (11:41)
[2018-05-30] MEDS ORDERED: Donnatal Elixir 16.2 MG/5 ML UDCUP ONE (12:16)
[2018-05-30] MEDS ORDERED: Mag-Al Plus 1200 MG/1200 MG/120 MG/30 ML UDCUP ONE (12:17)
[2018-05-30] MEDS ORDERED: Lidocaine Viscous Sol 2% 15 ml UD Cup ONE (12:17)
[2018-05-30 13:16] LABS: BHCG - Serum Negative (NEGATIVE); Pregs Control Background? CLEAR/WHITE (CLR/WHITE); Pregs Control Bar Appear? YES (CONTROL BAR)
[2018-05-30 13:18] LABS: Anisocytosis SLIGHT = 6-15 cells (100X) (0-5/hpf); Band 2 % (5-11); Dohle Bodies SLIGHT; Elliptocytes SLIGHT = 2-5 cells (100X) (0-1/hpf); Hemoglobin 10.3 g/dL (12.0-16.0); Lymphocytes 10 % (21-51); MDiff Complete? YES; Mean Corpuscular HGB CONC 32.5 g/dL (32.0-36.0); Mean Corpuscular Hemoglobin 29.5 pg (27.0-31.0); Mean Corpuscular Volume 90.8 fL (78.0-98.0); Mean Platelet Volume 6.7 fL (7.4-10.4); Monocytes 1 % (0-10); Neutrophil 87 % (42-75); Platelet Count 395 thou/uL (130-400); RBC Distribution Width 16.2 % (11.5-14.5); Red Blood Cell (RBC) Count 3.49 mill/uL (4.20-5.40); Target Cells SLIGHT = 2-5 cells (100X) (0-1/hpf); Tear Drops SLIGHT = 2-5 cells (100X) (0-1/hpf); White Blood Cell (WBC) Count 3.3 thou/uL (4.8-10.8)
[2018-05-30 13:19] LABS: ALT (SGPT) 15 U/L (8-55); AST (SGOT) 11 U/L (5-34); Alkaline Phosphatase 128 U/L (40-150); Anion Gap 20 mmol/L (10-20); BUN (Urea Nitrogen) 10 mg/dL (7.0-18.7); Bilirubin, Total 0.5 mg/dL (0.2-1.2); Calc. Creatinine Clearance 0 mL/min (70-130); Calcium 8.8 mg/dL (7.8-10.44); Carbon Dioxide 17 mmol/L (22-29); Chloride 101 mmol/L (98-107); Estimated GFR-MDRD Greater than 90; Glucose 393 mg/dL (70-105); Potassium 4.4 mmol/L (3.5-5.1); Sodium 134 mmol/L (136-145)
[2018-05-30 13:27] LABS: Lipase Less than 4 U/L (8-78)
== END 2018-05-30 14:35 | disposition home or self-care (01) ==
LOC: MADERS 11:21
DX: C50.919 Malignant neoplasm of unspecified site of unspecified female breast (principal); R11.2 Nausea with vomiting, unspecified; R00.0 Tachycardia, unspecified; E11.9 Type 2 diabetes mellitus without complications; F32.9 Major depressive disorder, single episode, unspecified; Z79.891 Long term (current) use of opiate analgesic; Z79.899 Other long term (current) drug therapy
CPT/HCPCS: 36415; 80053; 83690; 84703; 85025; 96361; 96374; J1642; J2760; J2765; J7050

== ENCOUNTER 2018-07-20 20:42 | Emergency (ER) | payer OTHER ==
[2018-07-20] MEDS ORDERED: Sodium Chloride 0.9% 2,000 ML ONE (21:13)
[2018-07-20] MEDS ORDERED: Sodium Chloride 0.9% 1,000 ML BAG ONE (21:18)
[2018-07-20 21:37] LABS: ALT (SGPT) 24 U/L (8-55); AST (SGOT) 15 U/L (5-34); Albumin 4.1 g/dL (3.5-5.0); Alkaline Phosphatase 90 U/L (40-150); Anion Gap 18 mmol/L (10-20); BUN (Urea Nitrogen) 13 mg/dL (7.0-18.7); Bilirubin, Total 0.3 mg/dL (0.2-1.2); Calc. Creatinine Clearance 0 mL/min (70-130); Calcium 9.6 mg/dL (7.8-10.44); Carbon Dioxide 20 mmol/L (22-29); Chloride 98 mmol/L (98-107); Estimated GFR-MDRD 63; Globulin 3.5 g/dL (2.4-3.5); Potassium 4.2 mmol/L (3.5-5.1); Protein, Total 7.6 g/dL (6.0-8.3); Sodium 132 mmol/L (136-145)
[2018-07-20 21:45] LABS: Glucose 640 mg/dL (70-105)
[2018-07-20] MEDS ORDERED: Potassium Chloride 20 MEQ TAB ONE (21:45)
[2018-07-20] MEDS ORDERED: Insulin Regular 300 UNITS/3 ML VIAL ONE (21:45)
== END 2018-07-20 23:50 | disposition home or self-care (01) ==
LOC: MADERS 20:42
DX: E11.9 Type 2 diabetes mellitus without complications (principal); F32.9 Major depressive disorder, single episode, unspecified; Z79.899 Other long term (current) drug therapy; Z79.4 Long term (current) use of insulin
CPT/HCPCS: 36415; 36416; 96360; 96361; J1642; J1815; J7050

== ENCOUNTER 2018-10-23 13:03 | Emergency (ER) | payer OTHER ==
[2018-10-23] MEDS ORDERED: Sodium Chloride 0.9% 1,000 ML ONE ×2 (13:22→20:53)
[2018-10-23] MEDS ORDERED: HYDROmorphone 0.5 MG/0.5 ML SYRINGE ONE (14:03)
[2018-10-23] MEDS ORDERED: Prochlorperazine 10 MG/2 ML VIAL ONE (14:03)
[2018-10-23] MEDS ORDERED: Oseltamivir 75 MG CAP ONE (14:29)
[2018-10-23 14:34] LABS: Hemoglobin 9.2 g/dL (12.0-16.0); Mean Corpuscular Hemoglobin 29.6 pg (27.0-31.0); Mean Corpuscular Volume 90.4 fL (78.0-98.0); White Blood Cell (WBC) Count 11.8 thou/uL (4.8-10.8)
[2018-10-23 14:35] LABS: Anisocytosis SLIGHT = 6-15 cells (100X) (0-5/hpf); Band 2 % (5-11); Eosinophils 1 % (0-10); Hypochromia SLIGHT = 6-15 cells (100X) (0-5/hpf); Lymphocytes 14 % (21-51); MDiff Complete? YES; Manual Diff?? YES; Mean Corpuscular HGB CONC 32.7 g/dL (32.0-36.0); Mean Platelet Volume 6.5 fL (7.4-10.4); Monocytes 3 % (0-10); Neutrophil 80 % (42-75); Platelet Count 429 thou/uL (130-400); Platelet Morphology Comment Appears Increased; RBC Distribution Width 14.4 % (11.5-14.5)
[2018-10-23 14:36] LABS: ALT (SGPT) 9 U/L (8-55); AST (SGOT) 10 U/L (5-34); Albumin 3.4 g/dL (3.5-5.0); Alkaline Phosphatase 74 U/L (40-150); Anion Gap 16 mmol/L (10-20); BUN (Urea Nitrogen) 7 mg/dL (7.0-18.7); Bilirubin, Total 0.4 mg/dL (0.2-1.2); Calc. Creatinine Clearance 0 mL/min (70-130); Carbon Dioxide 23 mmol/L (22-29); Chloride 100 mmol/L (98-107); Estimated GFR-MDRD Greater than 90; Globulin 3.5 g/dL (2.4-3.5); Glucose 262 mg/dL (70-105); Potassium 3.9 mmol/L (3.5-5.1); Protein, Total 6.9 g/dL (6.0-8.3); Sodium 135 mmol/L (136-145)
--- NOTE | 2018-10-23 14:42 | RAD ---
PORTABLE CHEST 1 VIEW: Date: 10/23/18 Time: 1336 hours HISTORY: Cough and tachycardia. FINDINGS: Comparison made with exam of 05/17/18. Right-sided Port-A-Cath remains in place. The heart size is normal. The lungs are expanded without fo sindy areas of consolidation, pneumothoraces, or pleural effusions. IMPRESSION: No radiographic evidence of acute cardiopulmonary process. POS: [facility]
--- NOTE | 2018-10-23 15:49 | CT ---
CT OF CHEST PERFORMED WITHOUT CONTRAST ENHANCEMENT: Date: 10/23/18 HISTORY: Cough with chest pain. History of mastectomy 3 weeks ago. FINDINGS: There are linear parenchymal changes within the right lung base. There is some minimal ground-glass o pacity. Changes are probably on the basis of atelectasis. No confluent infiltrative process is seen. No pulmonary nodules or pleural effusions are identified. Mediastinal structures appear unremarkable given the limitations of the noncontrast study. Patient is status post left mastectomy. There is an air density in the subcutaneous tissue associated with a slightly oblong shaped approximately 2.5 x 5.0 cm area of soft tissue change. This does appea r to possibly be related to complex fluid density. It could be entirely postoperative in nature. Pres ence of air does raise the possibility that this represents a small focal abscess. Ultrasound may be helpful in better characterization. There is a subcutaneous catheter that is superior to this level o f fluid collection. The fluid collection is closer to the inferior margin of the sternum. IMPRESSION: 1. Post left mastectomy change. There is an air fluid level with what appears to be a complex fluid collection just to the left of midline at the level of the inferior sternum. This measures 2.5 x 5.0 cm in size. It could be just postop seroma. The air density raises the possibility there could be abs cess. Ultrasound may be helpful in evaluation. 2. Atelectatic changes of the right lower lobe. 3. Incidental note is made of small gallstones. 4. Incidental note is made that the left kidney is not identified on this examination, but a previou s study does show that there is a left-sided pelvic kidney present. POS: [facility]
[2018-10-23] MEDS ORDERED: Clindamycin/D5W 600 mg/50 ml Premix Bag ONE (21:03)
[2018-10-23] MEDS ORDERED: Morphine 4 MG/ML VIAL ONE (23:40)
[2018-10-24 00:52] LABS: Bilirubin Small (Negative); Blood, Urine Negative (Negative); Glucose, Urine (Dipstick) 100 mg/dL (Negative); Leukocyte Negative (Negative); Nitrite Negative (Negative); Protein, Urine (Dipstick) 30 mg/dL (Neg-Trace); Urobilinogen > or = 8.0 mg/dL (0.2-1.0)
[2018-10-24 00:58] LABS: Clarity Hazy (Clear)
[2018-10-24 01:01] LABS: RBC/HPF None Seen HPF (0-3)
[2018-10-24 01:02] LABS: Bacteria/HPF Rare-Few HPF (None Seen); WBC/HPF 0-3 HPF (0-3)
[2018-10-24] MEDS ORDERED: Clindamycin/D5W 600 mg/50 ml Premix Bag ONE ×2 (03:36→09:56)
[2018-10-24] MEDS ORDERED: HYDROmorphone 0.5 MG/0.5 ML SYRINGE ONE ×2 (03:51→08:47)
[2018-10-24] MEDS ORDERED: Oseltamivir 75 MG CAP ONE (06:34)
[2018-10-24] MEDS ORDERED: Sodium Chloride 0.9% 1,000 ML ONE (08:47)
== END 2018-10-23 13:37 | disposition short-term general hospital (02) ==
LOC: MADERS 13:03
DX: J11.1 Influenza due to unidentified influenza virus with other respiratory manifestations (principal); R00.0 Tachycardia, unspecified; E11.9 Type 2 diabetes mellitus without complications; F32.9 Major depressive disorder, single episode, unspecified; F17.210 Nicotine dependence, cigarettes, uncomplicated; Z79.891 Long term (current) use of opiate analgesic; Z79.899 Other long term (current) drug therapy; Z79.4 Long term (current) use of insulin
CPT/HCPCS: 36415; 71045; 71250; 80053; 81003; 81015; 83605; 85025; 87040; 87804; 96361; 96365; 96366; 96375; 96376; J0780; J1170; J1642; J2270; J3490; J7050

== ENCOUNTER 2019-01-04 20:42 | Emergency (ER) | payer OTHER ==
[~2019-01-04 20:42] MED LIST changes: +Iopamidol 370 76% 200 ML VIAL ONE
--- NOTE | 2019-01-04 22:15 | RAD ---
AP view chest. HISTORY: Radiation with shortness of breath. AP view chest obtained on 01/04/2019. Comparison made to previous exam from 10/23/2018. A right jugular Mediport catheter is in place. The lungs are well aerated. No evidence of active intrathoracic disease seen. No evidence of effusion s, pneumonia or pneumothorax seen. IMPRESSION: Unremarkable AP view chest.
[2019-01-04 22:32] LABS: #Basophils 0.1 thou/uL (0.0-0.2); #Eosinphils 0.1 thou/uL (0.0-0.7); #Monocytes 0.5 thou/uL (0.11-0.59); #Neutrophils 6.3 thou/uL (1.40-6.50); %Eosinophils 1.3 % (0.0-10.0); %Lymphocytes 12.2 % (21.0-51.0); %Monocytes 5.8 % (0.0-10.0); %Neutrophils 79.8 % (42.0-75.0); Hemoglobin 11.3 g/dL (12.0-16.0); Mean Corpuscular HGB CONC 31.1 g/dL (32.0-36.0); Mean Corpuscular Hemoglobin 26.5 pg (27.0-31.0); Mean Corpuscular Volume 85.3 fL (78.0-98.0); Mean Platelet Volume 6.2 fL (7.4-10.4); Platelet Count 264 thou/uL (130-400); Red Blood Cell (RBC) Count 4.26 mill/uL (4.20-5.40); White Blood Cell (WBC) Count 7.9 thou/uL (4.8-10.8)
[2019-01-04 22:45] LABS: Bilirubin Negative (Negative); Blood, Urine Negative (Negative); Clarity Clear (Clear); Glucose, Urine (Dipstick) >=1000 mg/dL (Negative); Leukocyte Negative (Negative); Nitrite Negative (Negative); Protein, Urine (Dipstick) Negative (Neg-Trace); Specific Gravity, Urine 1.015 (1.005-1.030); Urobilinogen 0.2 mg/dL (0.2-1.0)
[2019-01-04 22:48] LABS: ALT (SGPT) 12 U/L (8-55); AST (SGOT) 13 U/L (5-34); Albumin 3.6 g/dL (3.5-5.0); Alkaline Phosphatase 99 U/L (40-150); Anion Gap 18 mmol/L (10-20); BUN (Urea Nitrogen) 10 mg/dL (7.0-18.7); Bilirubin, Total 0.2 mg/dL (0.2-1.2); Calc. Creatinine Clearance 0 mL/min (70-130); Calcium 8.9 mg/dL (7.8-10.44); Carbon Dioxide 24 mmol/L (22-29); Chloride 99 mmol/L (98-107); Estimated GFR-MDRD 88; Globulin 3.3 g/dL (2.4-3.5); Glucose 458 mg/dL (70-105); Potassium 4.5 mmol/L (3.5-5.1); Protein, Total 6.9 g/dL (6.0-8.3); Sodium 136 mmol/L (136-145)
--- NOTE | 2019-01-04 23:48 | CT ---
Contrast-enhanced CTA chest HISTORY: Dyspnea. Contrast enhanced CTA chest performed. There is been interval left-sided mastectomy. No definite evidence of lung parenchymal masses seen. No evidence of filling defects seen to suggest pulmonary emboli. The thoracic aorta is unremarkable. No definite evidence of osseous lesion seen. There is interval development of a large mass in the posterior aspect of the right hepatic lobe diame ter measuring 5.2 cm. There is surrounding areas of enhancement. This area was not present on the previous exam and is concerning for metastatic disease. IMPRESSION: Newly developed right hepatic lobe mass concerning for metastatic disease. Transcribed Date/Time: 01/04/2019 11:52 PM
[2019-01-05] MEDS ORDERED: Morphine 10 MG/ML VIAL ONE (01:01)
== END 2019-01-05 01:21 | disposition home or self-care (01) ==
LOC: MADERS 20:42
DX: R53.1 Weakness (principal); F32.9 Major depressive disorder, single episode, unspecified; F17.210 Nicotine dependence, cigarettes, uncomplicated; E11.9 Type 2 diabetes mellitus without complications; Z79.4 Long term (current) use of insulin; Z79.891 Long term (current) use of opiate analgesic; Z79.899 Other long term (current) drug therapy
CPT/HCPCS: 71045; 71275; 80053; 81003; 83605; 83880; 84484; 85025; 93005; 96361; 96374; J2270; J7050

== ENCOUNTER 2019-04-30 13:59 | Emergency (ER) | payer OTHER, SELFPAY | END 2019-04-30 15:10 | disposition home or self-care (01) | LOC: MADERS 13:59 | DX: C50.912 Malignant neoplasm of unspecified site of left female breast (principal); C78.7 Secondary malignant neoplasm of liver and intrahepatic bile duct; E11.9 Type 2 diabetes mellitus without complications; F17.210 Nicotine dependence, cigarettes, uncomplicated; Z85.3 Personal history of malignant neoplasm of breast; Z85.05 Personal history of malignant neoplasm of liver; Z79.899 Other long term (current) drug therapy | CPT/HCPCS: 99283 ==